=== PATIENT | female | born 1970 | race Two or more races ===

== ENCOUNTER → 2018-07-29 16:16 | Outpatient (CLI) | payer BC, SELFPAY ==
[2018-08-03 15:55] LABS: HPV Reflexed? NOT INDICATED
== END ==
PROVIDERS: Referring Provider Obstetrics & Gynecology; Visit Provider Obstetrics & Gynecology
DX: Z12.4 Encounter for screening for malignant neoplasm of cervix (principal)
CPT/HCPCS: 88175; G0145